=== PATIENT | male | born 1950 | race African-American/Black ===

== ENCOUNTER 2019-07-15 11:54 | Inpatient (IN) | payer MEDICARE, MEDICAID ==
[~2019-07-15] VITALS: Ht 190.5 cm; Wt 176.9 kg
--- NOTE | 2019-07-15 12:02 | NUR ---
ED Nurse Note: Patient does not recall his medicaiton name. Patient states he takes meds for HTN and DM.
--- NOTE | 2019-07-15 12:30 | NUR ---
ED Nurse Note: Pt brought in by ambulance d/t congestion and shortness of breath x 2 days. Respirations are tachy, but even. Vitals stable as documented. Bilateral lower extremity edema 1+ noted. Pt put on the monitor.
[2019-07-15 12:33] VITALS: BP 114/84
[2019-07-15 12:57] LABS: BASOPHILS % (AUTO) 0.6 % (0.0-2.0); EOSINOPHILS % (AUTO) 0.4 % (0.0-3.0); HEMATOCRIT 51.4 % (42.0-52.0); HEMOGLOBIN 17.4 G/DL (14.2-18.0); LYMPHOCYTES % (AUTO) 8.8 % (20.0-45.0); MEAN CORPUSCULAR VOLUME 95 FL (80-99); MONOCYTES % (AUTO) 5.8 % (1.0-10.0); NEUTROPHILS % (AUTO) 84.4 % (45.0-75.0); PLATELET COUNT 176 K/UL (150-450); RED BLOOD COUNT 5.41 M/UL (4.70-6.10); RED CELL DISTRIBUTION WIDTH 11.5 % (11.6-14.8); WHITE BLOOD COUNT 8.6 K/UL (4.8-10.8)
[2019-07-15 13:22] LABS: ANION GAP 10 mmol/L (5-15); BLOOD UREA NITROGEN 12 mg/dL (7-18); CARBON DIOXIDE 29 MMOL/L (21-32); CHLORIDE 102 MMOL/L (98-107); CREATININE 1.1 MG/DL (0.55-1.30); POTASSIUM 4.2 MMOL/L (3.5-5.1); SODIUM 141 MMOL/L (136-145)
[2019-07-15 13:23] LABS: ALANINE AMINOTRANSFERASE 21 U/L (12-78); ALBUMIN 3.4 G/DL (3.4-5.0); ALBUMIN/GLOBULIN RATIO 0.8 (1.0-2.7); ALKALINE PHOSPHATASE 79 U/L (46-116); ASPARTATE AMINO TRANSFERASE 27 U/L (15-37); BILIRUBIN,TOTAL 0.6 MG/DL (0.2-1.0); CALCIUM 8.7 MG/DL (8.5-10.1); CKMB 1.4 NG/ML (0.0-3.6); CREATINE KINASE 319 U/L (26-308)
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
[2019-07-15] MEDS ORDERED: Oseltamivir 75mg cap ORAL ONE (14:00)
--- NOTE | 2019-07-15 14:08 | Emergency Room Report ---
History of Present Illness General Chief Complaint: Flu Like Symptoms Source: Patient, EMS Present Illness HPI Patient presents with complaints of increased shortness of breath Patient reports that he is usually on oxygen however several days ago the company came and took the machine away reporting that he did not have further coverage Patient also reports having recent sleep study Denies any pleurisy he does feel fatigued has mild cough Patient provides history of exertional dyspnea Denies any recent travel denies any fevers Patient does take diuretics And potassium pills Allergies: Coded Allergies: No Known Allergies (Unverified , 07/15/19) Patient History Past Medical History: see triage record Reviewed Nursing Documentation: PMH: Agreed; PSxH: Agreed Nursing Documentation-PMH Past Medical History: No History, Except For Hx Cardiac Problems: Yes - CHF Hx Hypertension: Yes - Bilateral knee surgery Hx Pacemaker: No Hx Asthma: Yes Hx COPD: Yes Hx Diabetes: Yes Hx Cancer: No Hx Gastrointestinal Problems: No Hx Dialysis: No History Of Psychiatric Problem: No Hx Neurological Problems: No Hx Cerebrovascular Accident: No Hx Seizures: No Review of Systems All Other Systems: negative except mentioned in HPI Physical Exam Vital Signs Date Time Temp Pulse Resp B/P (MAP) Pulse Ox O2 Delivery O2 Flow Rate FiO2 07/15/19 11:54 100.9 96 16 109/79 (89) 89 Room Air Sp02 EP Interpretation: reviewed, abnormal - 89% on room air which is low on 2 L nasal cannula saturating at 95% which is normal General Appearance: mild distress - Short of breath Head: normocephalic, atraumatic Eyes: bilateral eye PERRL, bilateral eye EOMI ENT: EOM grossly intact Neck: supple, thyroid normal Respiratory: crackles - bilaterally, appears tachypneic crackles bilaterally Cardiovascular #1: regular rate, rhythm Gastrointestinal: non tender, soft Musculoskeletal: normal inspection Neurologic: alert, oriented x3 Psychiatric: normal inspection Skin: other - Dependent edema bilateral lower extremity Lymphatic: no adenopathy Medical Decision Making Diagnostic Impression: Primary Impression: Dyspnea Additional Impressions: CHF (congestive heart failure) Flu ER Course Patient is a fairly complex patient with multiple differential to consideration including but not limited to cardiac cardiopulmonary and vascular emergencies Patient is provided with diuretics at this time x-ray does not show any obvious Significant congestion however clinically patient has fluid overload Consideration for sleep apnea also made patient is also been taken off his oxygen at home Patient requires further inpatient care Labs Test 07/15/19 12:25 White Blood Count 8.6 K/UL (4.8-10.8) Red Blood Count 5.41 M/UL (4.70-6.10) Hemoglobin 17.4 G/DL (14.2-18.0) Hematocrit 51.4 % (42.0-52.0) Mean Corpuscular Volume 95 FL (80-99) Mean Corpuscular Hemoglobin 32.2 PG (27.0-31.0) Mean Corpuscular Hemoglobin Concent 33.9 G/DL (32.0-36.0) Red Cell Distribution Width 11.5 % (11.6-14.8) Platelet Count 176 K/UL (150-450) Mean Platelet Volume 6.2 FL (6.5-10.1) Neutrophils (%) (Auto) 84.4 % (45.0-75.0) Lymphocytes (%) (Auto) 8.8 % (20.0-45.0) Monocytes (%) (Auto) 5.8 % (1.0-10.0) Eosinophils (%) (Auto) 0.4 % (0.0-3.0) Basophils (%) (Auto) 0.6 % (0.0-2.0) Sodium Level 141 MMOL/L (136-145) Potassium Level 4.2 MMOL/L (3.5-5.1) Chloride Level 102 MMOL/L (98-107) Carbon Dioxide Level 29 MMOL/L (21-32) Anion Gap 10 mmol/L (5-15) Blood Urea Nitrogen 12 mg/dL (7-18) Creatinine 1.1 MG/DL (0.55-1.30) Estimat Glomerular Filtration Rate > 60 mL/min (>60) Glucose Level 131 MG/DL (74-106) Lactic Acid Level 1.10 mmol/L (0.4-2.0) Calcium Level 8.7 MG/DL (8.5-10.1) Total Bilirubin 0.6 MG/DL (0.2-1.0) Aspartate Amino Transf (AST/SGOT) 27 U/L (15-37) Alanine Aminotransferase (ALT/SGPT) 21 U/L (12-78) Alkaline Phosphatase 79 U/L (46-116) Total Creatine Kinase 319 U/L (26-308) Creatine Kinase MB 1.4 NG/ML (0.0-3.6) Creatine Kinase MB Relative Index 0.4 Troponin I 0.029 ng/mL (0.000-0.056) Pro-B-Type Natriuretic Peptide 146 pg/mL (0-125) Total Protein 7.6 G/DL (6.4-8.2) Albumin 3.4 G/DL (3.4-5.0) Globulin 4.2 g/dL Albumin/Globulin Ratio 0.8 (1.0-2.7) Rhythm Strip Diag. Results EP Interpretation: yes Rate: 87 Rhythm: NSR, no PVC's, no ectopy Chest X-Ray Diagnostic Results Chest X-Ray Diagnostic Results : Chest X-Ray Ordered: Yes # of Views/Limited/Complete: 1 View Indication: Shortness of Breath EP Interpretation: Yes Interpretation: no consolidation, no effusion, no pneumothorax, other - cardiomegaly mild congestion Impression: Other - Mild congestion Electronically Signed by: Kiah Burch DO Last Vital Signs Date Time Temp Pulse Resp B/P (MAP) Pulse Ox O2 Delivery O2 Flow Rate FiO2 07/15/19 12:33 100.9 84 16 114/84 95 Room Air Status: improved Disposition: ADMITTED INPATIENT Condition: Serious Referrals: NON PHYSICIAN (PCP) Kiah Burch DO Jul 15, 2019 14:08
[2019-07-15] MEDS ORDERED: Promethazine/Codeine 5ml UD ORAL PRN (14:15)
[2019-07-15] MEDS ORDERED: Albuterol/Ipratropium 3ml neb HHN PRN (14:15)
[2019-07-15] MEDS ORDERED: Miralax 17gm pkt ORAL PRN (14:15)
--- NOTE | 2019-07-15 14:20 | NUR ---
ED Nurse Note: Called [facility] and asked them to fax medication list over. Awaiting fax.
--- NOTE | 2019-07-15 14:53 | NUR ---
ED Nurse Note: Report given to SHENA Thompson on [facility]
--- NOTE | 2019-07-15 15:05 | Consultation ---
History of Present Illness General Chief Complaint: Flu Like Symptoms Present Illness HPI 69 year old male with hx of DM, CHF, Gout, COPD on home oxygen obesity, presented to ER with complaints of increased shortness of breath and exertional dyspnea. Pt also had flue like symptoms. He is admitted to [facility] for further management. Allergies: Coded Allergies: No Known Allergies (Unverified , 07/15/19) Medication History Scheduled Albuterol Sulfate (Ventolin Hfa), 2 PUFFS INH EVERY 6 HOURS, (Reported) Allopurinol* (Allopurinol*), 100 MG ORAL BID, (Reported) Atorvastatin Calcium* (Atorvastatin Calcium*), 10 MG ORAL BEDTIME, (Reported) Furosemide* (Lasix*), 40 MG ORAL DAILY, (Reported) Gabapentin* (Gabapentin*), 300 MG ORAL THREE TIMES A DAY, (Reported) Losartan Potassium* (Losartan Potassium*), 50 MG ORAL DAILY, (Reported) Metformin Hcl* (Glucophage*), 500 MG ORAL TWICE A DAY, (Reported) Potassium Chloride (Klor-Con 8), 8 MEQ ORAL DAILY, (Reported) Miscellaneous Medications Colchicine (Colcrys), 0.6 MG PO, (Reported) Dulaglutide (Trulicity), 1.5 MG SQ, (Reported) Oxybutynin Chloride (Oxybutynin Chloride Er), 20 MG PO, (Reported) Umeclidinium White [place] (Incruse Ellipta), 62.5 MCG IH, (Reported) Patient History Healthcare decision maker Resuscitation status Advanced Directive on File Past Medical/Surgical History Past Medical/Surgical History: (1) Gout (2) Diabetes mellitus (3) History of chronic CHF (4) Morbid obesity Review of Systems Respiratory: Reports: shortness of breath, MACIAS All Other Systems: negative except mentioned in HPI Physical Exam General Appearance: WD/WN, overweight, obese Lines, tubes and drains: peripheral HEENT: normocephalic, atraumatic Neck: non-tender, normal alignment Respiratory/Chest: chest wall non-tender, lungs clear Breasts: no masses Cardiovascular/Chest: normal peripheral pulses Abdomen: normal bowel sounds, non tender Genitourinary/Rectal: normal genital exam Extremities: normal range of motion Skin Exam: normal pigmentation Neurologic: material mixer II-XII grossly normal Last 24 Hour Vital Signs Date Time Temp Pulse Resp B/P (MAP) Pulse Ox O2 Delivery O2 Flow Rate FiO2 07/15/19 12:33 100.9 84 16 114/84 95 Room Air 07/15/19 12:33 96 24 Room Air 07/15/19 11:54 100.9 96 16 109/79 (89) 89 Room Air Laboratory Tests Test 07/15/19 12:25 White Blood Count 8.6 K/UL (4.8-10.8) Red Blood Count 5.41 M/UL (4.70-6.10) Hemoglobin 17.4 G/DL (14.2-18.0) Hematocrit 51.4 % (42.0-52.0) Mean Corpuscular Volume 95 FL (80-99) Mean Corpuscular Hemoglobin 32.2 PG (27.0-31.0) H Mean Corpuscular Hemoglobin Concent 33.9 G/DL (32.0-36.0) Red Cell Distribution Width 11.5 % (11.6-14.8) L Platelet Count 176 K/UL (150-450) Mean Platelet Volume 6.2 FL (6.5-10.1) L Neutrophils (%) (Auto) 84.4 % (45.0-75.0) H Lymphocytes (%) (Auto) 8.8 % (20.0-45.0) L Monocytes (%) (Auto) 5.8 % (1.0-10.0) Eosinophils (%) (Auto) 0.4 % (0.0-3.0) Basophils (%) (Auto) 0.6 % (0.0-2.0) Sodium Level 141 MMOL/L (136-145) Potassium Level 4.2 MMOL/L (3.5-5.1) Chloride Level 102 MMOL/L (98-107) Carbon Dioxide Level 29 MMOL/L (21-32) Anion Gap 10 mmol/L (5-15) Blood Urea Nitrogen 12 mg/dL (7-18) Creatinine 1.1 MG/DL (0.55-1.30) Estimat Glomerular Filtration Rate > 60 mL/min (>60) Glucose Level 131 MG/DL (74-106) H Lactic Acid Level 1.10 mmol/L (0.4-2.0) Calcium Level 8.7 MG/DL (8.5-10.1) Total Bilirubin 0.6 MG/DL (0.2-1.0) Aspartate Amino Transf (AST/SGOT) 27 U/L (15-37) Alanine Aminotransferase (ALT/SGPT) 21 U/L (12-78) Alkaline Phosphatase 79 U/L (46-116) Total Creatine Kinase 319 U/L (26-308) H Creatine Kinase MB 1.4 NG/ML (0.0-3.6) Creatine Kinase MB Relative Index 0.4 Troponin I 0.029 ng/mL (0.000-0.056) Pro-B-Type Natriuretic Peptide 146 pg/mL (0-125) H Total Protein 7.6 G/DL (6.4-8.2) Albumin 3.4 G/DL (3.4-5.0) Globulin 4.2 g/dL Albumin/Globulin Ratio 0.8 (1.0-2.7) L Height (Feet): 6 Height (Inches): 3.00 Weight (Pounds): 390 Medications Current Medications Medications (Trade) Dose Ordered Sig/Otoniel Route PRN Reason Start Time Stop Time Status Last Admin Dose Admin Acetaminophen (Tylenol) 650 mg Q4H PRN ORAL FEVER 07/15/19 14:15 08/14/19 14:14 Albuterol/ Ipratropium (Albuterol/ Ipratropium) 3 ml Q4H PRN HHN Shortness of Breath 07/15/19 14:15 07/20/19 14:14 Dextrose (Dextrose 50%) 25 ml Q30M PRN IV Hypoglycemia 07/15/19 14:15 08/14/19 14:14 Dextrose (Dextrose 50%) 50 ml Q30M PRN IV Hypoglycemia 07/15/19 14:15 08/14/19 14:14 Heparin Sodium (Porcine) (Heparin 5000 units/ml) 5,000 units EVERY 12 HOURS SUBQ 07/15/19 21:00 08/14/19 20:59 Levofloxacin 100 ml @ 100 mls/hr ONCE IVPB 07/15/19 18:00 07/15/19 20:00 Ondansetron HCl (Zofran) 4 mg Q6H PRN IVP Nausea & Vomiting 07/15/19 14:15 08/14/19 14:14 Polyethylene Glycol (Miralax) 17 gm DAILYPRN PRN ORAL Constipation 07/15/19 14:15 08/14/19 14:14 Promethazine HCl/ Codeine (Phenergan with Codeine) 5 ml Q4H PRN ORAL For Cough 07/15/19 14:15 08/14/19 14:14 Assessment/Plan Problem List: (1) Acute bronchitis ICD Codes: J20.9 - Acute bronchitis, unspecified SNOMED: 14231600 (2) Febrile illness ICD Codes: R50.9 - Fever, unspecified SNOMED: 704180259 (3) History of chronic CHF ICD Codes: Z86.79 - Personal history of other diseases of the circulatory system SNOMED: 392489568 (4) Morbid obesity ICD Codes: E66.01 - Morbid (severe) obesity due to excess calories SNOMED: 271784043 (5) Gout ICD Codes: M10.9 - Gout, unspecified SNOMED: 66953886 (6) Diabetes mellitus ICD Codes: E11.9 - Type 2 diabetes mellitus without complications SNOMED: 74798499 Assessment/Plan: respiratory treatment titrate fio2 to sat of 92% nebulizer treatment Echocardiogram to assess cardiac function cardiology to see pt is not in OVERT pulmonary edema or congestive heart failure sliding scale diabetic diet dvt prophylaxis. Geraldo Vera MD Jul 15, 2019 15:05
[2019-07-15] MEDS ORDERED: VENTOLIN HFA18 GM INH (15:07)
[2019-07-15] MEDS ORDERED: LOSARTAN POTASS50 MG ORAL (15:17)
[2019-07-15] MEDS ORDERED: COLCRYS0.6 M1 PO (15:17)
[2019-07-15] MEDS ORDERED: INCRUSE ELLI62.5 MCG IH (15:17)
[2019-07-15] MEDS ORDERED: FUROSEMIDE40 MG ORAL (15:17)
[2019-07-15] MEDS ORDERED: OXYBUTYNIN CHLOR5 M2 PO (15:17)
[2019-07-15] MEDS ORDERED: TRULICITY1.5 MG/0.5 SQ (15:17)
[2019-07-15] MEDS ORDERED: KLOR-CON 88 MEQ ORAL (15:17)
[2019-07-15] MEDS ORDERED: GABAPENTIN300 MG ORAL (15:17)
[2019-07-15] MEDS ORDERED: ATORVASTATIN CA20 MG ORAL (15:17)
[2019-07-15] MEDS ORDERED: GLUCOPHAGE500 MG ORAL (15:17)
[2019-07-15] MEDS ORDERED: ALLOPURINOL100 M1 ORAL (15:17)
--- NOTE | 2019-07-15 15:30 | NUR ---
ED Nurse Note: MEDICATIONS received from [facility] and med recon done. Pt transferred safely on the monitor to 2E.
[2019-07-15 16:00] VITALS: BP 102/60
--- NOTE | 2019-07-15 17:39 | Cardiology Progress Note ---
Assessment/Plan Assessment/Plan [id number] [facility] ntoe dicated hs of cardaid arrest during surgery with sedation now with diarrhea no recnt abx use has had vomittign as well will w3atch on telel check ekg in am and trop will follow Objective Last 24 Hour Vital Signs Date Time Temp Pulse Resp B/P (MAP) Pulse Ox O2 Delivery O2 Flow Rate FiO2 07/15/19 16:00 100.4 95 20 102/60 (74) 91 07/15/19 15:44 Nasal Cannula 1.0 07/15/19 15:31 82 16 128/82 95 Nasal Cannula 1.0 07/15/19 12:33 100.9 84 16 114/84 95 Room Air 07/15/19 12:33 96 24 Room Air 07/15/19 11:54 100.9 96 16 109/79 (89) 89 Room Air Laboratory Tests Test 07/15/19 12:25 White Blood Count 8.6 K/UL (4.8-10.8) Red Blood Count 5.41 M/UL (4.70-6.10) Hemoglobin 17.4 G/DL (14.2-18.0) Hematocrit 51.4 % (42.0-52.0) Mean Corpuscular Volume 95 FL (80-99) Mean Corpuscular Hemoglobin 32.2 PG (27.0-31.0) H Mean Corpuscular Hemoglobin Concent 33.9 G/DL (32.0-36.0) Red Cell Distribution Width 11.5 % (11.6-14.8) L Platelet Count 176 K/UL (150-450) Mean Platelet Volume 6.2 FL (6.5-10.1) L Neutrophils (%) (Auto) 84.4 % (45.0-75.0) H Lymphocytes (%) (Auto) 8.8 % (20.0-45.0) L Monocytes (%) (Auto) 5.8 % (1.0-10.0) Eosinophils (%) (Auto) 0.4 % (0.0-3.0) Basophils (%) (Auto) 0.6 % (0.0-2.0) Sodium Level 141 MMOL/L (136-145) Potassium Level 4.2 MMOL/L (3.5-5.1) Chloride Level 102 MMOL/L (98-107) Carbon Dioxide Level 29 MMOL/L (21-32) Anion Gap 10 mmol/L (5-15) Blood Urea Nitrogen 12 mg/dL (7-18) Creatinine 1.1 MG/DL (0.55-1.30) Estimat Glomerular Filtration Rate > 60 mL/min (>60) Glucose Level 131 MG/DL (74-106) H Lactic Acid Level 1.10 mmol/L (0.4-2.0) Calcium Level 8.7 MG/DL (8.5-10.1) Total Bilirubin 0.6 MG/DL (0.2-1.0) Aspartate Amino Transf (AST/SGOT) 27 U/L (15-37) Alanine Aminotransferase (ALT/SGPT) 21 U/L (12-78) Alkaline Phosphatase 79 U/L (46-116) Total Creatine Kinase 319 U/L (26-308) H Creatine Kinase MB 1.4 NG/ML (0.0-3.6) Creatine Kinase MB Relative Index 0.4 Troponin I 0.029 ng/mL (0.000-0.056) Pro-B-Type Natriuretic Peptide 146 pg/mL (0-125) H Total Protein 7.6 G/DL (6.4-8.2) Albumin 3.4 G/DL (3.4-5.0) Globulin 4.2 g/dL Albumin/Globulin Ratio 0.8 (1.0-2.7) Fernandez Argueta MD Jul 15, 2019 17:38
--- NOTE | 2019-07-15 17:49 | History & Physical ---
History and Physical History & Physicial Dictated for Int Med-Dr Cruz no. [id number]. Reece Gates MD Jul 15, 2019 17:49
--- NOTE | 2019-07-15 19:00 | NUR ---
NURSE NOTES: Pt. had a temperature of 100.4, Tylenol given per order. Recheck temp 98.7. Pt. calm and comfortable. In 2L NC at this time, per Pt. at home in 2L NC, saturating 92-93%.
--- NOTE | 2019-07-15 19:20 | NUR ---
NURSE NOTES: Received report from SHENA Mullins. Patient is awake, lying in semi osborne's; resting comfortably. On-going duplex scan. A/Ox4. Denies pain at this time. No signs of acute distress noted. Checked IV site and flushed. No erythema, bleeding, or infiltration noted. Bed at lowest position, brakes on, siderailsx3. Call light within reach. Will continue to monitor.
--- NOTE | 2019-07-15 19:25 | NUR ---
HAND-OFF: Report given to SHENA Kapadia. Pt. in stable condition. Plan of care endorsed.
[2019-07-15 20:00] VITALS: BP 118/81
[2019-07-15] MEDS: Heparin 5000 units/ml inj SUBQ SCH (20:59)
--- NOTE | 2019-07-15 21:50 | NUR ---
NURSE NOTES: Notified Dr. Vera of patient's venous duplex scan result negative.
[2019-07-16] VITALS: BP 120/75
--- NOTE | 2019-07-16 00:01 | History and Physical Report ---
DATE OF ADMISSION: 07/15/2019 CHIEF COMPLAINT: The patient is a 69-year-old male, who presents with a chief complaint of diarrhea. HISTORY OF PRESENT ILLNESS: Began two days prior to admission. The patient began to experience diarrhea. Diarrhea is watery. There was no blood in the stool. The patient states he has at least 2 bowel movements daily. The patient also had some shortness of breath. The patient presented to [facility] emergency room. The patient was admitted with shortness of breath to rule out acute congestive heart failure and diarrhea. REVIEW OF SYSTEMS: CONSTITUTIONAL: The patient denies weight loss or weight gain. The patient denies fevers or chills. HEENT: The patient denies ear or throat pain. The patient denies headache. CARDIOVASCULAR: The patient denies palpitations or chest pain. CHEST: The patient complains of shortness of breath as above. The patient denies wheezes. ABDOMEN: The patient denies nausea, vomiting, diarrhea, or constipation. GENITOURINARY: The patient denies dysuria or increased frequency of urination. NEUROMUSCULAR: The patient denies seizures or generalized weakness. ABDOMEN: The patient complains of diarrhea as above. The patient denies nausea, vomiting, or constipation. GENITOURINARY: The patient denies dysuria or increased frequency of urination. NEUROMUSCULAR: The patient denies seizures or generalized weakness. PAST MEDICAL HISTORY: Significant for, 1. Type 2 diabetes. 2. Hypertension. 3. Asthma. 4. Gout. 5. Diabetic peripheral neuropathy. 6. Hypercholesterolemia. 7. Urinary incontinence. PAST SURGICAL HISTORY: The patient denies. CURRENT MEDICATIONS: 1. Albuterol metered-dose inhaler two puffs p.o. 4 times a day p.r.n. 2. Allopurinol 100 mg p.o. twice daily. 3. Atorvastatin 20 mg p.o. at bedtime. 4. Colchicine 0.6 mg p.o. daily. 5. Trulicity 1.5 mg subcutaneously weekly. 6. Lasix 40 mg p.o. daily. 7. Gabapentin 300 mg p.o. 3 times daily. 8. Losartan 50 mg p.o. daily. 9. Glucophage 500 mg p.o. twice daily. 10. Oxybutynin 20 mg p.o. daily. 11. Potassium chloride 8 mEq p.o. daily. 12. Ellipta 1 puff p.o. daily. ALLERGIES: No known drug allergies. SOCIAL HISTORY: The patient is single and lives alone. The patient denies tobacco use. The patient denies alcohol use. PHYSICAL EXAMINATION: VITAL SIGNS: Temperature 100.9, respirations 16, pulse 96, and blood pressure 109/79. GENERAL: The patient is a well-developed and well-nourished obese male, in no apparent distress. HEENT: Eyes, pupils are equal and responsive to light and accommodation. Extraocular movements are intact. NECK: Supple without lymphadenopathy. CHEST: Lungs are clear to auscultation bilaterally without wheezes or rales. CARDIOVASCULAR: Regular rhythm and rate. S1, S2 are normal without murmurs, rubs, or gallops. ABDOMINAL: Soft, nontender, and nondistended. Positive bowel sounds. No evidence of hepatosplenomegaly. Currently, no rebound or guarding noted. EXTREMITIES: Negative for clubbing, cyanosis, or edema. RECTAL/GENITAL: Not performed. GENITAL: Not performed. NEUROLOGIC: Cranial nerves II through XII are grossly intact without focal deficits. Motor strength is 5/5 bilaterally. Deep tendon reflexes are 2+ plantar. LABORATORY STUDIES: WBC 8.6, hemoglobin 17.4, hematocrit 51.1, and platelets 176,000. Sodium 141, potassium 4.2, chloride 102, CO2 29, BUN 12, creatinine 1.1, and glucose 131. Troponin 0.029. BNP elevated at 146. Chest x-ray was reported as no acute disease. ASSESSMENT: This is a 69-year-old male. 1. Diarrhea. 2. Shortness of breath. 3. Diabetes type 2. 4. Hypertension. 5. Asthma. 6. Hypercholesterolemia. 7. History of urinary incontinence. TREATMENT: 1. Diarrhea. A stool culture is pending. The patient has been started empirically on Levaquin to cover traveler's diarrhea. We will follow recommendations of Gastroenterology. 2. Shortness of breath. A Pulmonary consultation has been obtained with Dr. Geraldo Vera. Continue Ellipta inhaler and albuterol metered-dose inhaler as above. 3. Diabetes type 2. Continue metformin as above. A NovoLog sliding scale has been instituted. 4. Hypertension. Continue Cozaar as above. 5. Hypercholesterolemia. Continue atorvastatin as above. 6. Urinary incontinence. Continue oxybutynin as above. 7. Gout. Continue allopurinol and colchicine as above. Reece Gates M.D. DR: ARIELA JOB#: [id number] CC:
--- NOTE | 2019-07-16 01:36 | NUR ---
NURSE NOTES: Resting throughout the night. No significant change of condition noted. Will continue to monitor.
[2019-07-16 04:00] VITALS: BP 125/78
--- NOTE | 2019-07-16 05:56 | NUR ---
NURSE NOTES: Notified Dr. Shaw of patient's EKG NSR possible inferior infarct, age undetermined; SR with PAC on the monitor, 78 bpm. Awaiting for callback.
[2019-07-16 07:00] LABS: BASOPHILS % (AUTO) 0.8 % (0.0-2.0); HEMATOCRIT 54.1 % (42.0-52.0); LYMPHOCYTES % (AUTO) 24.7 % (20.0-45.0); MEAN CORPUSCULAR VOLUME 96 FL (80-99); MONOCYTES % (AUTO) 8.5 % (1.0-10.0); PLATELET COUNT 163 K/UL (150-450); RED BLOOD COUNT 5.61 M/UL (4.70-6.10)
[2019-07-16 07:05] LABS: ANION GAP 8 mmol/L (5-15); BLOOD UREA NITROGEN 17 mg/dL (7-18); CALCIUM 8.7 MG/DL (8.5-10.1); CARBON DIOXIDE 30 MMOL/L (21-32); CHLORIDE 102 MMOL/L (98-107); CREATININE 1.2 MG/DL (0.55-1.30); POTASSIUM 3.9 MMOL/L (3.5-5.1); SODIUM 140 MMOL/L (136-145)
[2019-07-16 07:12] LABS: HEMOGLOBIN 18.2 G/DL (14.2-18.0)
--- NOTE | 2019-07-16 07:15 | NUR ---
NURSE NOTES: Lab called and spoke with Ede regarding patient's Hgb 18.2. Will endorsed to AM RN shift.
--- NOTE | 2019-07-16 07:20 | NUR ---
HAND-OFF: Report given to Afsosylvester. Plan of care endorsed.
[2019-07-16 07:29] LABS: ALBUMIN 3.6 G/DL (3.4-5.0); ANION GAP 11 mmol/L (5-15); BLOOD UREA NITROGEN 17 mg/dL (7-18); CALCIUM 8.8 MG/DL (8.5-10.1); CARBON DIOXIDE 28 MMOL/L (21-32); CHLORIDE 101 MMOL/L (98-107); CREATININE 1.2 MG/DL (0.55-1.30); PHOSPHORUS 3.7 MG/DL (2.5-4.9); POTASSIUM 3.9 MMOL/L (3.5-5.1); SODIUM 140 MMOL/L (136-145)
--- NOTE | 2019-07-16 07:30 | NUR ---
NURSE NOTES: Received pt from SHENA PETTY, Pt is awake and alert. pt has NC 2LMP. pt has intact iv access RH 20G SL. pt is eating breakfast with observation. Dr CINTRON notified regarding HB 18.2 and other lab results and V/S, waiting to call back. All needs attended, bed is locked and is in the lowest position, call light within easy reach. will continue to monitor.
[2019-07-16 08:00] VITALS: BP 144/100
--- NOTE | 2019-07-16 08:32 | NUR ---
NURSE NOTES: Dr CINTRON is aware about HB 18.2, no new order to RN. Will continue to monitor.
[2019-07-16] MEDS: Heparin 5000 units/ml inj SUBQ SCH ×2 (09:12→21:16)
--- NOTE | 2019-07-16 11:36 | Pulmonology Progress Note ---
Assessment/Plan Problems: (1) Acute bronchitis (2) Febrile illness (3) History of chronic CHF (4) Morbid obesity (5) Gout (6) Diabetes mellitus Assessment/Plan check sputum respiratory treatment titrate fio2 to sat of 92% nebulizer treatment Echocardiogram reviewed: EF 60% cardiology to see sliding scale diabetic diet dvt prophylaxis. Subjective ROS Limited/Unobtainable: No Interval Events: upset that he is not getting his home meds Allergies: Coded Allergies: No Known Allergies (Unverified , 07/15/19) Objective Last 24 Hour Vital Signs Date Time Temp Pulse Resp B/P (MAP) Pulse Ox O2 Delivery O2 Flow Rate FiO2 07/16/19 08:24 100 07/16/19 08:00 98.6 100 20 144/100 (115) 96 07/16/19 04:00 78 07/16/19 04:00 96.6 96 18 125/78 (94) 94 07/16/19 00:00 98 07/16/19 00:00 97.9 95 19 120/75 (90) 95 07/15/19 21:00 Nasal Cannula 2.0 07/15/19 20:00 90 07/15/19 20:00 96.8 81 18 118/81 (93) 94 07/15/19 17:37 98.6 07/15/19 16:00 95 07/15/19 16:00 100.4 95 20 102/60 (74) 91 07/15/19 15:44 Nasal Cannula 1.0 07/15/19 15:31 82 16 128/82 95 Nasal Cannula 1.0 07/15/19 12:33 100.9 84 16 114/84 95 Room Air 07/15/19 12:33 96 24 Room Air 07/15/19 11:54 100.9 96 16 109/79 (89) 89 Room Air Intake and Output 07/15/19 07/16/19 19:00 07:00 Intake Total 650 ml Output Total 2 ml Balance 648 ml Intake Oral 650 ml Output Stool Total 2 ml # Voids 2 3 # Bowel Movements 2 2 General Appearance: WD/WN HEENT: normocephalic, atraumatic Respiratory/Chest: chest wall non-tender, lungs clear, normal breath sounds Cardiovascular: normal peripheral pulses, normal rate Abdomen: normal bowel sounds, soft, non tender Genitourinary: normal external genitalia Neurologic/Psychiatric: thaw shed heater tender II-XII grossly normal Microbiology Date/Time Source Procedure Growth Status 07/15/19 16:30 Stool Clostridium difficile Toxin Assay - Final Complete Laboratory Tests 07/15/19 12:25: White Blood Count 8.6, Red Blood Count 5.41, Hemoglobin 17.4, Hematocrit 51.4, Mean Corpuscular Volume 95, Mean Corpuscular Hemoglobin 32.2H, Mean Corpuscular Hemoglobin Concent 33.9, Red Cell Distribution Width 11.5L, Platelet Count 176, Mean Platelet Volume 6.2L, Neutrophils (%) (Auto) 84.4H, Lymphocytes (%) (Auto) 8.8L, Monocytes (%) (Auto) 5.8, Eosinophils (%) (Auto) 0.4, Basophils (%) (Auto ) 0.6, Sodium Level 141, Potassium Level 4.2, Chloride Level 102, Carbon Dioxide Level 29, Anion Gap 10, Blood Urea Nitrogen 12, Creatinine 1.1, Estimat Glomerular Filtration Rate > 60, Glucose Level 131H, Lactic Acid Level 1.10, Calcium Level 8.7, Total Bilirubin 0.6, Aspartate Amino Transf (AST/SGOT) 27, Alanine Aminotransferase (ALT/SGPT) 21, Alkaline Phosphatase 79, Total Creatine Kinase 319H, Creatine Kinase MB 1.4, Creatine Kinase MB Relative Index 0.4, Troponin I 0.029, Pro-B-Type Natriuretic Peptide 146H, Total Protein 7.6, Albumin 3.4, Globulin 4.2, Albumin/Globulin Ratio 0.8L 07/16/19 05:45: White Blood Count 6.0, Red Blood Count 5.61, Hemoglobin 18.2*H, Hematocrit 54.1H , Mean Corpuscular Volume 96, Mean Corpuscular Hemoglobin 32.4H, Mean Corpuscular Hemoglobin Concent 33.6, Red Cell Distribution Width 12.0, Platelet Count 163, Mean Platelet Volume 5.2L, Neutrophils (%) (Auto) 65.0, Lymphocytes ( %) (Auto) 24.7, Monocytes (%) (Auto) 8.5, Eosinophils (%) (Auto) 1.0, Basophils (%) (Auto) 0.8, Sodium Level 140, Potassium Level 3.9, Chloride Level 102, Carbon Dioxide Level 30, Anion Gap 8, Blood Urea Nitrogen 17, Creatinine 1.2, Estimat Glomerular Filtration Rate > 60, Glucose Level 123H, Calcium Level 8.7, Troponin I 0.049, Albumin 3.6, Phosphorus Level 3.7 Current Medications Medications (Trade) Dose Ordered Sig/Otoniel Route PRN Reason Start Time Stop Time Status Last Admin Dose Admin Acetaminophen (Tylenol) 650 mg Q4H PRN ORAL FEVER 07/15/19 14:15 08/14/19 14:14 07/15/19 17:07 Albuterol/ Ipratropium (Albuterol/ Ipratropium) 3 ml Q4H PRN HHN Shortness of Breath 07/15/19 14:15 07/20/19 14:14 Dextrose (Dextrose 50%) 25 ml Q30M PRN IV Hypoglycemia 07/15/19 14:15 08/14/19 14:14 Dextrose (Dextrose 50%) 50 ml Q30M PRN IV Hypoglycemia 07/15/19 14:15 08/14/19 14:14 Heparin Sodium (Porcine) (Heparin 5000 units/ml) 5,000 units EVERY 12 HOURS SUBQ 07/15/19 21:00 08/14/19 20:59 07/16/19 09:12 Levofloxacin 100 ml @ 100 mls/hr Q24H IVPB 07/16/19 18:00 07/23/19 17:59 Ondansetron HCl (Zofran) 4 mg Q6H PRN IVP Nausea & Vomiting 07/15/19 14:15 08/14/19 14:14 Polyethylene Glycol (Miralax) 17 gm DAILYPRN PRN ORAL Constipation 07/15/19 14:15 08/14/19 14:14 Promethazine HCl/ Codeine (Phenergan with Codeine) 5 ml Q4H PRN ORAL For Cough 07/15/19 14:15 08/14/19 14:14 Geraldo Vera MD Jul 16, 2019 11:36
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
[2019-07-16 12:00] VITALS: BP 139/91
[2019-07-16] MEDS: Furosemide 40mg tab ORAL SCH (12:06)
[2019-07-16] MEDS: Allopurinol 100mg Tab ORAL SCH ×2 (12:06→17:11)
[2019-07-16] MEDS: Losartan 50mg tab ORAL SCH (12:06)
[2019-07-16] MEDS: metFORMIN 500mg tab ORAL SCH ×2 (12:07→17:11)
--- NOTE | 2019-07-16 13:10 | NUR ---
P.T Note: P.T evaluation completed and tx initiated. Please refer to P.T evaluation for current functional status. . Pt currently is independent with Bed mobility, SBA/CGA X 1 for transfer activities. Pt was able to ambulate and tolerate distance of 30 ft with FWW and CGA/SBA X 1. Pt is mostly limited by generalized weakness , fatigue and SOB with minimal exertion. O2 sat 86-89% with activities at room air and 95-97% at 2 l/min of O2 via NC post activities. Skilled P.T service is warranted to improve strength and activity tolerance to increase mobility independence and safety. Recommend Home P.T at [facility].
[2019-07-16 15:57] VITALS: BP 121/97
--- NOTE | 2019-07-16 16:06 | NUR ---
CASE MANAGEMENT: INITIAL 69 Y/O MALE FROM HOME FLIP CC: FLU-LIKE SYMPTOMS SI:CHF, UPPER RESPIRATORY INFECTION 101.0 96 16 109/79 89% RA TROPONIN 0.029 IS:LASIX IV X1 TAMIFLU PO X1 ~~~~TELEMETRY STATUS 2 EAST Addendum: 07/16/19 at 1614 by ARABELLA DIAZ RN CASE MANAGEMENT: INITIAL IS: VENOUS DUPLEX ~ NEGATIVE CHEST XRAY~ NEGATIVE
--- NOTE | 2019-07-16 16:37 | Internal Med Progress Note ---
Subjective Physician Name Arslan Cruz Attending Physician Arslan Cruz MD Current Medications Medications (Trade) Dose Ordered Sig/Otoniel Route PRN Reason Start Time Stop Time Status Last Admin Dose Admin Acetaminophen (Tylenol) 650 mg Q4H PRN ORAL FEVER 07/15/19 14:15 08/14/19 14:14 07/15/19 17:07 Albuterol/ Ipratropium (Albuterol/ Ipratropium) 3 ml Q4H PRN HHN Shortness of Breath 07/15/19 14:15 07/20/19 14:14 Allopurinol (Zyloprim) 100 mg BID ORAL 07/16/19 11:30 08/15/19 11:29 07/16/19 12:06 Atorvastatin Calcium (Lipitor) 10 mg BEDTIME ORAL 07/16/19 21:00 08/15/19 20:59 Colchicine (Colchicine) 0.6 mg DAILY ORAL 07/16/19 11:30 08/15/19 11:29 07/16/19 12:06 Dextrose (Dextrose 50%) 25 ml Q30M PRN IV Hypoglycemia 07/15/19 14:15 08/14/19 14:14 Dextrose (Dextrose 50%) 50 ml Q30M PRN IV Hypoglycemia 07/15/19 14:15 08/14/19 14:14 Furosemide (Lasix) 40 mg DAILY ORAL 07/16/19 11:30 08/15/19 11:29 07/16/19 12:06 Gabapentin (Neurontin) 300 mg THREE TIMES A DAY ORAL 07/16/19 13:00 08/15/19 12:59 07/16/19 13:21 Heparin Sodium (Porcine) (Heparin 5000 units/ml) 5,000 units EVERY 12 HOURS SUBQ 07/15/19 21:00 08/14/19 20:59 07/16/19 09:12 Levofloxacin 100 ml @ 100 mls/hr Q24H IVPB 07/16/19 18:00 07/23/19 17:59 Losartan Potassium (Cozaar) 50 mg DAILY ORAL 07/16/19 11:30 08/15/19 11:29 07/16/19 12:06 Metformin HCl (Glucophage) 500 mg TWICE A DAY ORAL 07/16/19 11:30 08/15/19 11:29 07/16/19 12:07 Ondansetron HCl (Zofran) 4 mg Q6H PRN IVP Nausea & Vomiting 07/15/19 14:15 08/14/19 14:14 Polyethylene Glycol (Miralax) 17 gm DAILYPRN PRN ORAL Constipation 07/15/19 14:15 08/14/19 14:14 Promethazine HCl/ Codeine (Phenergan with Codeine) 5 ml Q4H PRN ORAL For Cough 07/15/19 14:15 08/14/19 14:14 07/16/19 12:07 Allergies: Coded Allergies: No Known Allergies (Unverified , 07/15/19) Subjective Awake, alert, responsive, complain but less shortness of breath, denies any pedal edema, denies any chest pain. Objective Last Vital Signs Date Time Temp Pulse Resp B/P (MAP) Pulse Ox O2 Delivery O2 Flow Rate FiO2 07/16/19 15:57 98.7 80 19 121/97 (105) 98 07/16/19 09:00 Nasal Cannula 2.0 Laboratory Tests Test 07/16/19 05:45 White Blood Count 6.0 K/UL (4.8-10.8) Red Blood Count 5.61 M/UL (4.70-6.10) Hemoglobin 18.2 G/DL (14.2-18.0) *H Hematocrit 54.1 % (42.0-52.0) H Mean Corpuscular Volume 96 FL (80-99) Mean Corpuscular Hemoglobin 32.4 PG (27.0-31.0) H Mean Corpuscular Hemoglobin Concent 33.6 G/DL (32.0-36.0) Red Cell Distribution Width 12.0 % (11.6-14.8) Platelet Count 163 K/UL (150-450) Mean Platelet Volume 5.2 FL (6.5-10.1) L Neutrophils (%) (Auto) 65.0 % (45.0-75.0) Lymphocytes (%) (Auto) 24.7 % (20.0-45.0) Monocytes (%) (Auto) 8.5 % (1.0-10.0) Eosinophils (%) (Auto) 1.0 % (0.0-3.0) Basophils (%) (Auto) 0.8 % (0.0-2.0) Sodium Level 140 MMOL/L (136-145) Potassium Level 3.9 MMOL/L (3.5-5.1) Chloride Level 102 MMOL/L (98-107) Carbon Dioxide Level 30 MMOL/L (21-32) Anion Gap 8 mmol/L (5-15) Blood Urea Nitrogen 17 mg/dL (7-18) Creatinine 1.2 MG/DL (0.55-1.30) Estimat Glomerular Filtration Rate > 60 mL/min (>60) Glucose Level 123 MG/DL (74-106) H Calcium Level 8.7 MG/DL (8.5-10.1) Phosphorus Level 3.7 MG/DL (2.5-4.9) Troponin I 0.049 ng/mL (0.000-0.056) Albumin 3.6 G/DL (3.4-5.0) Microbiology Date/Time Source Procedure Growth Status 07/15/19 16:30 Stool Clostridium difficile Toxin Assay - Final Complete Intake and Output 07/15/19 07/16/19 18:59 06:59 Intake Total 650 ml Output Total 2 ml Balance 648 ml Intake Oral 650 ml Output Stool Total 2 ml # Voids 2 3 # Bowel Movements 2 2 Objective General: No acute distress, awake and alert HEENT: NCAT, sclera anicteric, PERRL, EOMI. Neck: Supple, no significant jugular venous distention, Lungs: Bilateral air entry, decreased air at the bases, no Wheeze or Rales. Heart: Regular rate and rhythm, normal S1/S2, distant heart sound, no murmurs Abdomen: soft, nontender, nondistended. Normoactive bowel sounds, morbid obesity. Extremities: No Cyanosis , clubbing trace bilateral ankle edema. Neuro: A&O x 3, Able to move all extremities Skin: warm, no rash. Psych: Normal mood and affect Assessment/Plan Assessment/Plan 1. Diarrhea. 2. Shortness of breath most likely secondary to acute bronchitis. 3. Diabetes type 2. 4. Hypertension. 5. Asthma. 6. Hypercholesterolemia. 7. History of urinary incontinence. 8. Gout. TREATMENT: 1. Diarrhea. A stool culture is pending. The patient has been started empirically on Levaquin to cover traveler's diarrhea. We will follow recommendations of Gastroenterology. 2. Shortness of breath. A Pulmonary consultation has been obtained with Dr. Geraldo Vera. Continue Ellipta inhaler and albuterol metered-dose inhaler as above. 3. Diabetes type 2. Continue metformin as above. A NovoLog sliding scale has been instituted. 4. Hypertension. Continue Cozaar as above. 5. Hypercholesterolemia. Continue atorvastatin as above. 6. Urinary incontinence. Continue oxybutynin as above. 7. Gout. Continue allopurinol and colchicine as above. Antibiotics: Levaquin DVT prophylaxis: Heparin subcu. CODE STATUS: Full code. Follow-up with the 2D echo. Duplex of lower extremity negative for acute DVT. Arslan Cruz MD Jul 16, 2019 16:37
--- NOTE | 2019-07-16 17:00 | NUR ---
NURSE NOTES: stool specimen sent to lab, waiting for result
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
[2019-07-16] MEDS: Oseltamivir 75mg cap ORAL SCH (18:04)
--- NOTE | 2019-07-16 18:12 | Cardiology Progress Note ---
Assessment/Plan Assessment/Plan 1. Diarrhea and vomiting, possibly viral gastroenteritis. 2. History of congestive heart failure. 3. History of cardiac arrest, secondary to airway obstruction during sedation 2017. 4. Diabetes mellitus. 5. Hypertension. 6. Hypercapnia. 7. Depression. 8. Morbid obesity. 9. Hyperlipidemia. 10. poly cythemai hemoconcentration as well and chronic hyopr capnia related ? c diff neg all torp neg tele neg ekg neg bp elelvated will increae cozaar for now cardaic stable Subjective Cardiovascular: Denies: chest pain, lightheadedness Respiratory: Denies: cough, orthopnea, shortness of breath Gastrointestinal/Abdominal: Reports: diarrhea; Denies: abdominal pain Genitourinary: Denies: burning Objective Last 24 Hour Vital Signs Date Time Temp Pulse Resp B/P (MAP) Pulse Ox O2 Delivery O2 Flow Rate FiO2 07/16/19 16:58 81 07/16/19 15:57 98.7 80 19 121/97 (105) 98 07/16/19 12:30 80 07/16/19 12:06 144/100 07/16/19 12:00 97.7 88 19 139/91 (107) 93 07/16/19 09:00 Nasal Cannula 2.0 07/16/19 08:24 100 07/16/19 08:00 98.6 100 20 144/100 (115) 96 07/16/19 04:00 78 07/16/19 04:00 96.6 96 18 125/78 (94) 94 07/16/19 00:00 98 07/16/19 00:00 97.9 95 19 120/75 (90) 95 07/15/19 21:00 Nasal Cannula 2.0 07/15/19 20:00 90 07/15/19 20:00 96.8 81 18 118/81 (93) 94 General Appearance: no apparent distress, alert Neck: supple Cardiovascular: normal rate Respiratory/Chest: lungs clear Abdomen: normal bowel sounds, non tender, soft Extremities: no swelling Intake and Output 07/15/19 07/16/19 19:00 07:00 Intake Total 650 ml Output Total 2 ml Balance 648 ml Intake Oral 650 ml Output Stool Total 2 ml # Voids 2 3 # Bowel Movements 2 2 Laboratory Tests Test 07/16/19 05:45 White Blood Count 6.0 K/UL (4.8-10.8) Red Blood Count 5.61 M/UL (4.70-6.10) Hemoglobin 18.2 G/DL (14.2-18.0) *H Hematocrit 54.1 % (42.0-52.0) H Mean Corpuscular Volume 96 FL (80-99) Mean Corpuscular Hemoglobin 32.4 PG (27.0-31.0) H Mean Corpuscular Hemoglobin Concent 33.6 G/DL (32.0-36.0) Red Cell Distribution Width 12.0 % (11.6-14.8) Platelet Count 163 K/UL (150-450) Mean Platelet Volume 5.2 FL (6.5-10.1) L Neutrophils (%) (Auto) 65.0 % (45.0-75.0) Lymphocytes (%) (Auto) 24.7 % (20.0-45.0) Monocytes (%) (Auto) 8.5 % (1.0-10.0) Eosinophils (%) (Auto) 1.0 % (0.0-3.0) Basophils (%) (Auto) 0.8 % (0.0-2.0) Sodium Level 140 MMOL/L (136-145) Potassium Level 3.9 MMOL/L (3.5-5.1) Chloride Level 102 MMOL/L (98-107) Carbon Dioxide Level 30 MMOL/L (21-32) Anion Gap 8 mmol/L (5-15) Blood Urea Nitrogen 17 mg/dL (7-18) Creatinine 1.2 MG/DL (0.55-1.30) Estimat Glomerular Filtration Rate > 60 mL/min (>60) Glucose Level 123 MG/DL (74-106) H Calcium Level 8.7 MG/DL (8.5-10.1) Phosphorus Level 3.7 MG/DL (2.5-4.9) Troponin I 0.049 ng/mL (0.000-0.056) Albumin 3.6 G/DL (3.4-5.0) Microbiology Date/Time Source Procedure Growth Status 07/15/19 16:30 Stool Clostridium difficile Toxin Assay - Final Complete Fernandez Shaw MD Jul 16, 2019 18:12
--- NOTE | 2019-07-16 19:24 | NUR ---
HAND-OFF: Report given to LAURA CHATTERJEE. Pt is awake and stable.
[2019-07-16 20:00] VITALS: BP 124/94
--- NOTE | 2019-07-16 20:00 | NUR ---
NURSE NOTES: RECEIVED PATIENT LYING IN BED, AWAKE, ALERT/ORIENTED X4, VERBALLY RESPONSIVE, DENIES PAIN. NO SIGNS AND SYMPTOMS OF ACUTE CARDIO RESPIRATORY DISTRESS/SHORTNESS OF BREATH, DENIES CHEST PAIN, NO PERIPHERAL EDEMA NOTED. SINUS RHYTHM ON FOOD SAFETY AUDITOR. IV INTACT TO RIGHT HAND/GAUGE 20, NO REDNESS/SWELLING NOTED, DENIES TENDERNESS. NO COMPLAINTS OF GI DISCOMFORT, ABDOMEN OBESE/ROUND/NON TENDER/AUDIBLE BOWEL SOUNDS. SIDE RAILS UP X2 FOR MOBILITY, BED IN LOWEST POSITION FOR SAFETY, ENCOURAGED PATIENT TO UTILIZE CALL LIGHT FOR ASSISTANCE, VERBALIZED UNDERSTANDING. FWW AT BEDSIDE. NAD.
--- NOTE | 2019-07-16 21:28 | NUR ---
NURSE NOTES: AMBULATED TO RESTROOM WITH FRONT WHEEL WALKER, FULL WEIGHT BEARING TO LEFT LOWER EXTREMITY, RIGHT LOWER EXTREMITY SLIGHTLY CONTRACTED SECONDARY TO KNEE SURGERY APPROXIMATELY 8 YEARS AGO.
[2019-07-17] VITALS: BP 124/50
[2019-07-17 04:00] VITALS: BP 125/83
--- NOTE | 2019-07-17 06:25 | NUR ---
NURSE NOTES: RESTED WELL, NO SIGNIFICANT CHANGE OF CONDITION NOTED THROUGHOUT THE NIGHT. SAFETY MAINTAINED. NAD.
--- NOTE | 2019-07-17 07:34 | NUR ---
NURSE NOTES: Nurse report given by KHAI Billings. Patient's awake and sitting in bed eating breakfast high osborne position, eyes open spontaneously, AO x 4, denies pain, no s/s of distress or SOB, unlabored breathing, on 2L NC. Bed low an locked, call light within reach, side rails x2, walker at bedside. IV is saline, patent and asymptomatic. Will continue to monitor.
--- NOTE | 2019-07-17 07:35 | NUR ---
HAND-OFF: Report given to SHENA JENSEN.
[2019-07-17 08:00] VITALS: BP 117/77
[2019-07-17 08:50] VITALS: BP 117/77
[2019-07-17] MEDS: Allopurinol 100mg Tab ORAL SCH (08:50)
[2019-07-17] MEDS: Losartan 50mg tab ORAL SCH (08:50)
[2019-07-17] MEDS: Furosemide 40mg tab ORAL SCH (08:50)
[2019-07-17] MEDS: metFORMIN 500mg tab ORAL SCH (08:51)
[2019-07-17] MEDS: Oseltamivir 75mg cap ORAL SCH (08:51)
[2019-07-17] MEDS: Heparin 5000 units/ml inj SUBQ SCH (08:51)
--- NOTE | 2019-07-17 09:26 | NUR ---
AMA: SEE AMA FORM.Contacted Dr. Vera and Dr. Cruz regarding patient's wish to leave against medical advice. Patient stated :" I need to go home and pay my bill." Dr. Vera acknowledged and confirmed the patient leaving AMA.
--- NOTE | 2019-07-17 10:07 | NUR ---
AMA: SEE AMA FORM. Patient signed AMA formed. Patient's AO x 4, denies pain, no s/s of distress or SOB. Patient's belonging list signed by patient. Medication bag picked up from pharmacist and given back to the patient. Patient went home by cab, patient went off the unit by wheelchair with assist of nurse. Charge nurse Jeffrey and donor floor technician aware of patient leaving. IV is taken out, school lunch monitor removed, ID band discarded properly.
--- NOTE | 2019-07-19 08:01 | Discharge Summary ---
Discharge Summary Discharge Summary _ DATE OF ADMISSION: 07/15/2019 DATE OF DISCHARGE: 07/17/2019 Patient left AGAINST MEDICAL ADVICE REASON FOR ADMISSION: 69 years old male with past medical history of COPD, diabetes mellitus, congestive heart failure, presented with increased shortness of breath and diarrhea. Upon evaluation patient was febrile. No leukocytosis. Chest x-ray revealed no acute process. Laboratory work-up showed stable electrolytes and renal parameters. Troponin negative , proBNP 146. Patient admitted to monitored floor for further management CONSULTANTS: pulmonary Dr. Jody SALDAÑA specialist Dr. Howard [facility]SE: Patient admitted to monitored floor. Supplemental oxygen provided and titrated to keep pulse oximetry above 92%. Pulmonary toilet via HHN with bronchodilator provided. Patient was empirically on Tamiflu and Levaquin. Influenza screen was negative. Blood cultures were negative. Stool culture and stool for C. difficile were negative. Antitussive provided as needed. Venous duplex bilateral lower extremity revealed no evidence of acute DVT. DVT prophylaxis provided. Director Of Analytical Development followed. Patient had a history of cardiac arrest, secondary to airway obstruction during sedation 2016. All troponin were negative. Telemetry was negative. EKG revealed no acute ischemic changes. Blood pressure was noted to be elevated , and dose of Cozaar was uptitrated. Blood sugar was managed with metformin . Antigout medication continued. Supportive care provided. Fevers resolved. On 07/17/2019 patient decided to leave AGAINST MEDICAL ADVICE. The risks and consequences of signing AGAINST MEDICAL ADVICE were discussed with patient in detail. Patient verbalized understanding, nevertheless signed AMA form and left. 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 Diabetes mellitus type 2 Morbid obesity History of chronic congestive heart failure Hypertension Hypercholesterolemia Gout Urinary incontinence I have been assigned to dictate discharge summary for this account. I was not involved in the patient's management. Cassy Owen NP Jul 19, 2019 08:01
== END 2019-07-17 10:00 | disposition left against medical advice (07) | DRG 392 ==
LOC: EDBD 11:54 → EMR 12:05 → 2E 13:50 → EDBEDREQ 14:31
DX: A08.4 Viral intestinal infection, unspecified (principal); J20.9 Acute bronchitis, unspecified; E66.01 Morbid (severe) obesity due to excess calories; E11.42 Type 2 diabetes mellitus with diabetic polyneuropathy; M10.9 Gout, unspecified; E78.00 Pure hypercholesterolemia, unspecified; J44.9 Chronic obstructive pulmonary disease, unspecified; D75.1 Secondary polycythemia; I11.0 Hypertensive heart disease with heart failure; I50.9 Heart failure, unspecified; R32 Unspecified urinary incontinence; Z99.81 Dependence on supplemental oxygen; Z86.74 Personal history of sudden cardiac arrest; M19.90 Unspecified osteoarthritis, unspecified site; G47.33 Obstructive sleep apnea (adult) (pediatric)
CPT/HCPCS: 36415; 71045; 80048; 80053; 80069; 82550; 82553; 82962; 83605; 83880; 84484; 85025; 86710; 87040; 87045; 87324; 93005; 93306; 93970; 94664; 96374; 99285